=== PATIENT | female | born 1985 | race Caucasian/White ===

== ENCOUNTER 2021-02-23 23:24 | Emergency (ER) | payer OTHER | END 2021-02-24 01:30 | disposition home or self-care (01) | LOC: ER1 23:24 | DX: S63.501A Unspecified sprain of right wrist, initial encounter (principal); E11.9 Type 2 diabetes mellitus without complications; G40.909 Epilepsy, unspecified, not intractable, without status epilepticus; F17.210 Nicotine dependence, cigarettes, uncomplicated; Z90.49 Acquired absence of other specified parts of digestive tract; Z90.89 Acquired absence of other organs; Z88.0 Allergy status to penicillin; Z88.5 Allergy status to narcotic agent; Z88.8 Allergy status to other drugs, medicaments and biological substances; W19.XXXA Unspecified fall, initial encounter | CPT/HCPCS: 29125; 73110; 99283 ==

== ENCOUNTER 2021-04-02 23:19 | Emergency (ER) | payer OTHER ==
[2021-04-03 01:37] LABS: HEMOGLOBIN 14.1 gm/dl (12.3-15.3); RED BLOOD COUNT 4.99 M/UL (4.00-5.10)
[2021-04-03 01:56] LABS: BUN/CREATININE RATIO 13 (0-10)
[2021-04-03] MEDS ORDERED: CLEOCIN HCL150 MG PO (03:44)
== END 2021-04-03 04:00 | disposition home or self-care (01) ==
LOC: ER1 23:19
PROVIDERS: Physician Assistant
DX: K05.10 Chronic gingivitis, plaque induced (principal); I88.9 Nonspecific lymphadenitis, unspecified; F17.200 Nicotine dependence, unspecified, uncomplicated; Z79.899 Other long term (current) drug therapy
CPT/HCPCS: 70490; 80053; 83605; 85025; 87040; 96365; 99284; Q9967

== ENCOUNTER 2021-06-03 01:14 | Emergency (ER) | payer OTHER ==
[~2021-06-03 01:14] MED LIST: CLEOCIN HCL150 MG PO
[2021-06-03 01:34] LABS: HEMOGLOBIN 13.5 gm/dl (12.3-15.3); RED BLOOD COUNT 4.81 M/UL (4.00-5.10); WHITE BLOOD COUNT 11.4 K/UL (4.5-11.0)
[2021-06-03 02:10] LABS: BUN/CREATININE RATIO 13 (0-10)
[2021-06-03] MEDS ORDERED: MACROBID 100 M100 MG PO (03:08)
== END 2021-06-03 03:02 | disposition home or self-care (01) ==
LOC: ER1 01:14
PROVIDERS: Physician Assistant
DX: S66.911A Strain of unspecified muscle, fascia and tendon at wrist and hand level, right hand, initial encounter (principal); S40.011A Contusion of right shoulder, initial encounter; G40.909 Epilepsy, unspecified, not intractable, without status epilepticus; F17.210 Nicotine dependence, cigarettes, uncomplicated; N39.0 Urinary tract infection, site not specified; W19.XXXA Unspecified fall, initial encounter
CPT/HCPCS: 29125; 70450; 71045; 73030; 73090; 73110; 80053; 80307; 81001; 84703; 85025; 87086; 93005; 99284

== ENCOUNTER 2021-08-28 01:20 | Emergency (ER) | payer OTHER ==
[~2021-08-28 01:20] MED LIST changes: +MACROBID 100 M100 MG PO
[2021-08-28 01:51] LABS: HEMOGLOBIN 14.1 gm/dl (12.3-15.3); RED BLOOD COUNT 5.09 M/UL (4.00-5.10); WHITE BLOOD COUNT 11.9 K/UL (4.5-11.0)
[2021-08-28 02:12] LABS: BUN/CREATININE RATIO 10 (0-10)
[2021-08-28] MEDS ORDERED: HYDROCODONE-AC1 EACH PO (02:55)
[2021-08-28] MEDS ORDERED: ZOFRAN ODT 4 MG4 MG PO (02:59)
== END 2021-08-28 03:20 | disposition home or self-care (01) ==
LOC: ER1 01:20
PROVIDERS: Physician Assistant
DX: S82.832A Other fracture of upper and lower end of left fibula, initial encounter for closed fracture (principal); R55 Syncope and collapse; G40.909 Epilepsy, unspecified, not intractable, without status epilepticus; I10 Essential (primary) hypertension; Z88.0 Allergy status to penicillin; Z88.5 Allergy status to narcotic agent; X58.XXXA Exposure to other specified factors, initial encounter
CPT/HCPCS: 29515; 70450; 71045; 73610; 80053; 82550; 82553; 83690; 83735; 83874; 83880; 84484; 84703; 85025; 93005; 99284

== ENCOUNTER 2021-11-10 21:35 | Emergency (ER) | payer OTHER ==
[~2021-11-10 21:35] MED LIST changes: +HYDROCODONE-AC1 EACH PO; +ZOFRAN ODT 4 MG4 MG PO
[2021-11-10 22:11] LABS: HEMOGLOBIN 14.6 gm/dl (12.3-15.3); RED BLOOD COUNT 5.12 M/UL (4.00-5.10); WHITE BLOOD COUNT 10.3 K/UL (4.5-11.0)
[2021-11-10 22:34] LABS: BUN/CREATININE RATIO 11 (0-10)
== END 2021-11-10 23:36 | disposition home or self-care (01) ==
LOC: ER1 21:35
PROVIDERS: Physician Assistant
DX: G40.909 Epilepsy, unspecified, not intractable, without status epilepticus (principal); F17.210 Nicotine dependence, cigarettes, uncomplicated; Z91.14 Patient's other noncompliance with medication regimen; Z88.0 Allergy status to penicillin; Z88.5 Allergy status to narcotic agent
CPT/HCPCS: 71045; 80053; 82550; 82553; 84484; 84703; 85025; 85379; 93005; 99284; J1953

== ENCOUNTER 2021-11-21 17:41 | Emergency (ER) | payer OTHER ==
[2021-11-21 19:15] LABS: HEMOGLOBIN 14.4 gm/dl (12.3-15.3); RED BLOOD COUNT 5.1 M/UL (4.00-5.10); WHITE BLOOD COUNT 11.4 K/UL (4.5-11.0)
[2021-11-21 19:32] LABS: BUN/CREATININE RATIO 6 (0-10)
== END 2021-11-22 01:46 | disposition home or self-care (01) ==
LOC: ER1 17:41
PROVIDERS: Physician Assistant
DX: R55 Syncope and collapse (principal); G40.909 Epilepsy, unspecified, not intractable, without status epilepticus; I10 Essential (primary) hypertension; J45.909 Unspecified asthma, uncomplicated; Z90.49 Acquired absence of other specified parts of digestive tract; Z90.89 Acquired absence of other organs; Z88.0 Allergy status to penicillin; F17.210 Nicotine dependence, cigarettes, uncomplicated
CPT/HCPCS: 70450; 71045; 80053; 85025; 93005; 99285

== ENCOUNTER 2021-12-24 11:49 | Emergency (ER) | payer OTHER ==
[2021-12-24 13:31] LABS: HEMOGLOBIN 15.1 gm/dl (12.3-15.3); RED BLOOD COUNT 5.42 M/UL (4.00-5.10); WHITE BLOOD COUNT 11.4 K/UL (4.5-11.0)
[2021-12-24 14:25] LABS: BUN/CREATININE RATIO 4 (0-10)
[2021-12-24] MEDS ORDERED: MACROBID 100 M100 MG PO (16:30)
[2021-12-24] MEDS ORDERED: METRONIDAZOLE500 MG PO (16:43)
== END 2021-12-24 16:54 | disposition home or self-care (01) ==
LOC: ER1 11:49
PROVIDERS: Emergency Medicine; Physician Assistant
DX: N39.0 Urinary tract infection, site not specified (principal); E11.9 Type 2 diabetes mellitus without complications; I10 Essential (primary) hypertension; J45.909 Unspecified asthma, uncomplicated; Z90.89 Acquired absence of other organs
CPT/HCPCS: 70450; 71045; 80053; 80307; 81001; 82550; 82553; 84484; 85025; 99285

== ENCOUNTER 2022-01-15 11:24 | Observation (INO) | payer OTHER ==
[~2022-01-15] VITALS: Ht 149.9 cm; Wt 109.3 kg
[~2022-01-15 11:24] MED LIST changes: +METRONIDAZOLE500 MG PO
[2022-01-15 13:14] LABS: HEMOGLOBIN 14.4 gm/dl (12.3-15.3); RED BLOOD COUNT 4.91 M/UL (4.00-5.10)
[2022-01-15 13:44] LABS: BUN/CREATININE RATIO 6 (0-10)
[2022-01-15] MEDS ORDERED: CLONIDINE HCL0.1 MG PO (17:00)
[2022-01-15] MEDS ORDERED: ESCITALOPRAM OX10 MG PO (17:01)
[2022-01-15] MEDS ORDERED: PROAIR HFA8.5 GM INH (17:04)
[2022-01-15] MEDS ORDERED: HYDROXYZINE HCL25 MG PO (17:04)
== END 2022-01-15 20:05 | disposition left against medical advice (07) ==
LOC: ER1 11:24 → CDU 15:40 → M/S 17:52
PROVIDERS: Physician Assistant; ADMIT Internal Medicine
DX: R55 Syncope and collapse (principal); R41.0 Disorientation, unspecified; G40.909 Epilepsy, unspecified, not intractable, without status epilepticus; I10 Essential (primary) hypertension; F41.9 Anxiety disorder, unspecified; J45.909 Unspecified asthma, uncomplicated; F17.210 Nicotine dependence, cigarettes, uncomplicated; Z53.29 Procedure and treatment not carried out because of patient's decision for other reasons; Z79.899 Other long term (current) drug therapy; Z88.0 Allergy status to penicillin; Z88.5 Allergy status to narcotic agent; Z88.6 Allergy status to analgesic agent
CPT/HCPCS: 80053; 81001; 82550; 82553; 83735; 84132; 84484; 84703; 85025; 87086; 93005; 99285; G0378